=== PATIENT | female | born 1965 ===

== ENCOUNTER 2018-04-01 09:30 | Inpatient (IN) | payer OTHER ==
[~2018-04-01] VITALS: Ht 165.1 cm; Wt 77.1 kg
[2018-04-01] MEDS ORDERED: ALBUTEROL0.63 MG/3 IH (10:17)
[2018-04-01] MEDS ORDERED: WELLBUTRIN XL300 MG PO (10:18)
[2018-04-01] MEDS ORDERED: BUSPIRONE HCL10 MG PO (10:18)
[2018-04-01] MEDS ORDERED: PROSOM PO (10:19)
[2018-04-01] MEDS ORDERED: CLONAZEPAM2 MG PO (10:19)
[2018-04-01] MEDS ORDERED: GABAPENTIN800 MG PO (10:20)
[2018-04-01] MEDS ORDERED: MOBIC15 MG PO (10:20)
[2018-04-01] MEDS ORDERED: METFORMIN HCL500 M2 PO (10:21)
[2018-04-01] MEDS ORDERED: METOPOLOL PO (10:21)
[2018-04-01] MEDS ORDERED: PRILOSEC OTC20 MG PO (10:22)
[2018-04-01] MEDS ORDERED: ZANTAC300 MG PO (10:22)
[2018-04-01] MEDS ORDERED: TRAZODONE HCL100 MG PO (10:23)
[2018-04-01] MEDS ORDERED: ZANAFLEX4 MG PO (10:23)
[2018-04-01] MEDS ORDERED: NEPHRONEX-SL T1 EACH PO (10:23)
[2018-04-01] MEDS ORDERED: SINGULAIR10 MG PO (10:24)
[2018-04-01] MEDS ORDERED: OSTERA TABLET1 EACH PO (10:24)
[2018-04-01] MEDS ORDERED: ZYRTEC10 M3 PO (10:24)
[2018-04-01] MEDS ORDERED: PROVENTIL HFA6.7 GM (10:25)
[2018-04-30] MEDS ORDERED: CHOLESTYRAMINE P4 GM PO (11:35)
[2018-04-30] MEDS ORDERED: VITAMIN B-121000 MCG PO (11:36)
[2018-04-30] MEDS ORDERED: FOLIC ACID1 MG PO (11:36)
[2018-04-30] MEDS ORDERED: THIAMINE HCL100 MG PO (11:36)
[2018-04-30] MEDS ORDERED: GAS RELIEF125 MG PO (11:36)
[2018-04-30] MEDS ORDERED: TRAM1TAB98 PO (11:37)
[2018-04-30] MEDS ORDERED: CARAFATE1 GM PO (11:37)
== END 2018-04-30 15:42 | disposition home health service (06) | DRG 330 ==
LOC: ADM 09:30 → EDSTATUS 09:30 → SURH 04-09 06:43 → O/R 04-09 06:43 → SURG 04-09 09:30 → SURH 04-09 17:16 → MEDI 04-09 17:16 → SURH 04-09 22:47
PROVIDERS: Surgery
PROC: 4A033R1 Measurement of Arterial Saturation, Peripheral, Percutaneous Approach (ICD-10-PCS; 2018-04-09)
PROC: 3E0F7GC Introduction of Other Therapeutic Substance into Respiratory Tract, Via Natural or Artificial Opening (ICD-10-PCS; 2018-04-09)
PROC: 4A12X4Z Monitoring of Cardiac Electrical Activity, External Approach (ICD-10-PCS; 2018-04-09)
PROC: 0DTE4ZZ Resection of Large Intestine, Percutaneous Endoscopic Approach (ICD-10-PCS; principal; 2018-04-09 13:15)
PROC: 30233N1 Transfusion of Nonautologous Red Blood Cells into Peripheral Vein, Percutaneous Approach (ICD-10-PCS; 2018-04-10)
PROC: 3E0436Z Introduction of Nutritional Substance into Central Vein, Percutaneous Approach (ICD-10-PCS; 2018-04-14)
PROC: 02HV33Z Insertion of Infusion Device into Superior Vena Cava, Percutaneous Approach (ICD-10-PCS; 2018-04-14)
PROC: BW40ZZZ Ultrasonography of Abdomen (ICD-10-PCS; 2018-04-17)
PROC: BW25Y0Z Computerized Tomography (CT Scan) of Chest, Abdomen and Pelvis using Other Contrast, Unenhanced and Enhanced (ICD-10-PCS; 2018-04-22)
PROC: 0W9G30Z Drainage of Peritoneal Cavity with Drainage Device, Percutaneous Approach (ICD-10-PCS; 2018-04-24)
PROC: BW25ZZZ Computerized Tomography (CT Scan) of Chest, Abdomen and Pelvis (ICD-10-PCS; 2018-04-30)
DX: K59.01 Slow transit constipation (principal); D62 Acute posthemorrhagic anemia; K56.0 Paralytic ileus; K91.89 Other postprocedural complications and disorders of digestive system; K91.870 Postprocedural hematoma of a digestive system organ or structure following a digestive system procedure; R17 Unspecified jaundice; G47.33 Obstructive sleep apnea (adult) (pediatric); E11.42 Type 2 diabetes mellitus with diabetic polyneuropathy; J45.20 Mild intermittent asthma, uncomplicated; F41.8 Other specified anxiety disorders; Z74.09 Other reduced mobility; M54.89 Other dorsalgia

== ENCOUNTER 2019-04-09 07:23 | Day surgery (SDC) | payer OTHER ==
[~2019-04-09 07:23] MED LIST: ALBUTEROL0.63 MG/3 IH; BUSPIRONE HCL10 MG PO; CARAFATE1 GM PO; CHOLESTYRAMINE P4 GM PO; CLONAZEPAM2 MG PO; FOLIC ACID1 MG PO; GABAPENTIN800 MG PO; GAS RELIEF125 MG PO; METFORMIN HCL500 M2 PO; METOPOLOL PO; MOBIC15 MG PO; NEPHRONEX-SL T1 EACH PO; OSTERA TABLET1 EACH PO; PRILOSEC OTC20 MG PO; PROSOM PO; PROVENTIL HFA6.7 GM; SINGULAIR10 MG PO; THIAMINE HCL100 MG PO; TRAM1TAB98 PO; TRAZODONE HCL100 MG PO; VITAMIN B-121000 MCG PO; WELLBUTRIN XL300 MG PO; ZANAFLEX4 MG PO; ZANTAC300 MG PO; ZYRTEC10 M3 PO
== END 2019-04-09 11:00 | disposition home or self-care (01) ==
LOC: AMB-ENDOS 07:23
DX: K64.4 Residual hemorrhoidal skin tags (principal)

== ENCOUNTER 2021-04-06 11:45 | Inpatient (IN) | payer OTHER ==
[2021-04-13] MEDS ORDERED: ULTRAM50 MG PO (08:15)
[2021-04-13] MEDS ORDERED: KETO10TA2 PO (08:16)
== END 2021-04-13 09:13 | disposition home or self-care (01) | DRG 419 ==
LOC: ADM 11:45 → O/R 04-12 06:56 → CIR.AMB 04-12 07:00 → EDSTATUS 04-12 11:45 → SURH 04-12 11:45 → CIR.AMB 04-12 11:45 → SURH 04-12 14:47
PROVIDERS: ADMIT Surgery; ATTEND Surgery
PROC: BF532Z0 Other Imaging of Gallbladder and Bile Ducts using Fluorescing Agent, Intraoperative (ICD-10-PCS; 2021-04-12)
PROC: 0FT44ZZ Resection of Gallbladder, Percutaneous Endoscopic Approach (ICD-10-PCS; principal; 2021-04-12 07:00)
DX: K81.1 Chronic cholecystitis (principal); K64.1 Second degree hemorrhoids; Z86.010 Personal history of colon polyps; K59.01 Slow transit constipation; E11.9 Type 2 diabetes mellitus without complications; Z79.4 Long term (current) use of insulin; Z20.822 Contact with and (suspected) exposure to COVID-19; G47.33 Obstructive sleep apnea (adult) (pediatric)